=== PATIENT | male | born 1945 | race Caucasian/White ===

== ENCOUNTER 2020-09-04 11:13 | Outpatient (CLI) | payer OTHER, SELFPAY ==
--- NOTE | ~2020-09-04 | US_ITS ---
EXAMINATION: US renal BI EXAM DATE: 09/04/2020 12:10 INDICATION: Acute right flank pain. TECHNIQUE: Multiple grayscale and Doppler images of the kidneys were obtained (by a technologist who performed the scan) and subsequently reviewed. There is no prior study for comparison. FINDINGS: Right kidney: There is normal contour and echogenicity. It measures 10.8 x 6.4 x 6.2 centimeters. T here are no focal renal lesions identified. There is no hydronephrosis. Left kidney: There is normal contour and echogenicity. It measures 10.8 x 5.1 x 6.0 centimeters. Th ere are no focal renal lesions identified. There is no hydronephrosis. Bladder unremarkable. IMPRESSION: Sonographically unremarkable kidneys. Reviewed, dictated and finalized at location B.
== END 2020-09-04 11:14 | disposition home or self-care (01) ==
PROVIDERS: PCP Internal Medicine; Visit Provider Internal Medicine
DX: R10.9 Unspecified abdominal pain (principal)
CPT/HCPCS: 76775

== ENCOUNTER 2023-04-06 13:37 | Outpatient (CLI) | payer OTHER, SELFPAY ==
--- NOTE | ~2023-04-06 | MR_ITS ---
EXAMINATION: MR shoulder RT wo con DATE: 04/06/2023 14:13 INDICATION: Right shoulder pain TECHNIQUE: Magnetic resonance imaging (MRI) of the right shoulder was performed without intravenous c ontrast. Sequences included axial PD-weighted FS FSE, coronal oblique PD-weighted FS FSE, coronal obl ique T2-weighted FS FSE, sagittal PD-weighted FS FSE, and sagittal T1-weighted SE. COMPARISON: None. FINDINGS: Coracoacromial arch: The acromion undersurface is curved in morphology (type II). The coracoacromial ligament is normal. M oderate acromioclavicular osteoarthritis. Rotator cuff: Mild supraspinatus and infraspinatus tendinopathy with full-thickness tear extending along the superi or and anterior portion of the middle facet footplates of the supraspinatus and anterior infraspinatu s tendons. The tear measures 3 cm AP along the greater tuberosity and 3.5 cm medial to lateral. The t ear extends anteriorly across rotator cuff interval with full-thickness tear involving the cephalad t wo thirds of the lesser tuberosity footplate of the subscapularis tendon. The bursal side of the tend on remains intact and contiguous with the intact transverse humeral ligament. The caudal muscular ins ertion of the subscapularis on the inferior aspect of the lesser tuberosity also remains intact. Ther e is medial retraction and moderate fatty atrophy of the subscapularis tendon. Mild fatty atrophy of the supraspinatus and infraspinatus muscle bellies and moderate fatty atrophy of the teres minor musc le belly with normal teres minor tendon. Biceps tendon, glenoid labrum and glenohumeral cartilage: Suture anchor site at the floor of the intertubercular groove consistent with prior bicipital tenodes is. Recurrent tear with distal retraction of the long head biceps and below level of the intertubercu lar groove. There is deep chondral ulceration along the inferomedial aspect of the humeral head. Ther e are also small marginal osteophytes. Mild partial-thickness cartilage loss along the anterosuperior glenoid. Mild amorphous increased signal at the inferior glenoid consistent with labral degeneration without a well-defined labral tear. There is additional degeneration along the superior glenoid labr um with irregular margins at the site of the torn versus resected origin of the long head biceps tend on. Fluid: Small glenohumeral joint effusion which extends to the full-thickness rotator cuff tear to indicate w ith small amount of fluid at the subacromial/subdeltoid bursa and if further into the acromioclavicul ar joint space. No loose osteochondral bodies. Bones: Cephalad subluxation of the humeral head with respect to the glenoid with narrowing of the subacromia l space to approximately 1.5 mm between the surface of the articular cartilage. Extensive humeral hea d and the undersurface of the anterior acromion. No fracture or pathologic marrow replacing process. IMPRESSION: 1. Full-thickness tear involving the entire supraspinatus tendon, the cephalad two thirds of the subs capularis tendon and the anterior half of the infraspinatus tendon. 2. Mild glenohumeral osteoarthritis with degeneration of the superior and inferior glenoid labrum. 3. 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 Correlate with surgical history. 4. Moderate acromioclavicular osteoarthritis. Reviewed, dictated and finalized at location L. [facility] [employer] IMPRESSION: 1. Full-thickness tear involving the entire supraspinatus tendon, the cephalad two thirds of the subscapularis tendon and the anterior half of the infraspinat us tendon. 2. Mild glenohumeral osteoarthritis with degeneration of the superior and infer ior glenoid labrum. 3. Likely prior bicipital tenodesis with r
== END 2023-04-06 13:38 | disposition home or self-care (01) ==
LOC: ANHIMG 13:37
PROVIDERS: PCP Internal Medicine; Visit Provider Orthopaedic Surgery
DX: S46.011A Strain of muscle(s) and tendon(s) of the rotator cuff of right shoulder, initial encounter (principal); X58.XXXA Exposure to other specified factors, initial encounter; M19.011 Primary osteoarthritis, right shoulder
CPT/HCPCS: 73221

== ENCOUNTER 2023-06-01 11:15 | Outpatient (RCR) | payer OTHER, SELFPAY ==
--- NOTE | 2023-05-11 11:44 | PTOPEVAL1 ---
Assessment and note entered by Vini Juarez Evaluation Information Assessment Status Evaluation Diagnosis right shoulder pain, massive rotator cuff tear Onset 03/25/23 Subjective Information Pt. reports that he has had shoulder pain for about 20 years. He states that it has worsened over the years and visited the doctor in regards to the pain. He states pain is located at the right shoulder. He does state that he has a massive tear in the right shoulder. He states that pain is mostly noted with lifting and moving the right arm. He states that he cannot lift anything of significant weight overhead with the right arm. He states that he is right hand dominant. He reports that he is not having trouble with sleep due to the shoulder pain. He reports that he cannot lay on the right shoulder. He states that he had a recent injection which has helped to reduce pain. he reports that his goal for therapy is to reduce the right shoulder pain. Reported Pain Level Pain Score 1: Self Report Assessment PT Clinical Summary Pt. is a 77 year old male who enters the clinic with right shoulder pain. Pt. presents with impaired right shoulder ROM, impaired right shoulder strength and pain. Continued skilled PT is indicated in order to improve these areas to allow for improved function and improved comfort with IADL's. Plan of Care Interventions Electrical Stimulation,Hot Pack/Cold Pack,Manual Therapy,Neuro Re-education,Patient/Caregiver Educati,Therapeutic Activities,Therapeutic Exercise PT Services Indicated Yes Treatment Frequency and 2x/week x 8 visits Duration These treatments will address the objective and functional deficits as defined above. The patient will be advanced safely and appropriately in order for the patient to progress towards his/her prior level of function. Additional exercises will be introduced and as well as a comprehensive home exercise program upon discharge, if needed, ?to ensure carryover of functional gains achieved in the clinic. This treatment plan has been reviewed and agreement upon by the patient.
--- NOTE | 2023-05-11 11:45 | OPREHPOC ---
Outpatient Therapy Plan of Care This is a Multidisciplinary Plan of Care that may contain components documented by all disciplines (PT, OT, and ST.) PT Problem 1 PT Problem #1 Knowledge Deficit PT Goal 1 Goal Independent with a HEP addressing right shoulder ROM. Target Visit 2 PT Problem 2 PT Problem #2 Impaired Range of Motion PT Goal 1 Goal Pt. will achieve 155 degrees active right shoulder flexion against gravity pt. will demonstrate symmetry with shoulder IR and ER active ROM on both right and left. Target Visit 8 PT Problem 3 PT Problem #3 Impaired Strength PT Goal 1 Goal Pt. will demonstrate 4+/5 gross right shoulder strength Target Visit 8 PT Problem 4 PT Problem #4 Impaired Functional Mobil PT Goal 1 Goal Pt. will present with less than 5% limitation with the Quick DASH. Target Visit 8
--- NOTE | 2023-06-15 16:49 | PTOPDC ---
Assessment and note entered by Kip Tristan, PT Evaluation Information Assessment Status Discharge Diagnosis right shoulder pain, massive rotator cuff tear Onset 03/25/23 Subjective Information Patient reports that he has been released by MD and requesting discharge this date. Assessment PT Clinical Summary Patient suitable for discharge to [facility] at this time . Will continue strengthening as part of [facility]. Plan of Care PT Services Indicated D/C to [facility]
== END 2023-06-16 08:27 | disposition home or self-care (01) ==
LOC: ANHPT 11:15
PROVIDERS: PCP Internal Medicine; Visit Provider Orthopaedic Surgery
DX: M75.101 Unspecified rotator cuff tear or rupture of right shoulder, not specified as traumatic (principal); M25.511 Pain in right shoulder
CPT/HCPCS: 97110; 97161; 97530